=== PATIENT | male | born 1995 | race Caucasian/White ===

== ENCOUNTER 2019-05-18 08:38 | Emergency (ER) | payer SELFPAY ==
[2019-05-18 08:43] VITALS: BP 142/80; PULSE 82; RESP 16; TEMP 37.2; O2SAT 98
--- NOTE | 2019-05-18 09:17 | ED.GENADUL_ITS ---
Discharge Plan Disposition Patient Disposition: HOME Condition: Good Discharge Details Chief Complaint: DentalOral Clinical Impression: Abscess, dental Primary Care Provider: None,None ED Provider: Mei Huang Home Meds and New Rx's Prescriptions: New penicillin V potassium 500 mg tablet 500 mg PO QID Qty: 40 RF: 0 No Action ibuprofen 600 MG tablet 600 mg PO Q6H PRN (Reason: Pain) Qty: 20 RF: 0 Discharge Instructions Instructions: Dental Abscess (ED) Additional Instructions: Drink plenty of fluids. Ice to the cheek for swelling. Warm salt water rinses after eating or drinking. Use antibiotic as prescribed. Continue Aleve with food in your stomach prior to dosing twice daily. You may use Tylenol for breakthrough pain. Follow-up with your dentist. Return for any worsening, concerns or alarming symptoms sooner if needed. Medical Decision Making 24-year-old presents with right lower dental pain. Patient on exam has obvious swelling at the gumline, obviously tender. Consistent with dental abscess. Mild facial swelling consistent with dental abscess. No overlying cellulitis. No trismus. Patient has normal range of motion of the jaw. No other indication of infection. Cervical lymphadenopathy is present. Counseled patient regarding appropriate care and treatment. Antibiotics were provided. Encourage follow-up with dentist. The patient was stable and requested discharge. Prior to discharge, my usual and customary return precautions were reviewed with the patient - this included follow-up instructions and reasons to return to the Emergency Department if conditions worsens, does not improve as expected, or other new concerns arise. HPI General Date/Time Provider Initiated Documentation: 05/18/19 09:15 . HPI Narrative: 24-year-old patient presents for complaints of dental pain. Patient reports dental pain for the last 2 days. Sleeping in his recliner due to pain. History of significant dental caries. Patient reports a hard lump along the side of his jaw which she is concerned with infection. Denies fever, chills, nausea, vomiting. No trismus or voice change. Denies any other ill feeling. No other concerns or complaints. Related Data Home Medications Medication Instructions Recorded Confirmed ibuprofen 600 mg PO Q6H PRN #20 tab 03/31/17 05/18/19 penicillin V potassium 500 mg PO QID #40 tab 05/18/19 Previous Rx's Medication Instructions Recorded ibuprofen 600 mg PO Q6H PRN #20 tab 03/31/17 penicillin V potassium 500 mg PO QID #40 tab 05/18/19 Allergies Allergy/AdvReac Type Severity Reaction Status Date / Time No Known Allergies Allergy Unverified 05/18/19 08:45 General Stated Complaint: DentalOral FAN: 3 Review of Systems All systems reviewed & are unremarkable except as noted in HPI and below Constitutional Constitutional: Denies chills, Denies fever(s) and Denies headache(s) ENT Ears, Nose, Mouth, and Throat: Reports dental pain, Denies otalgia, Reports facial pain, Denies headache(s), Denies nasal congestion, Denies nasal discharge, Denies sinus pain, Denies sinus pressure and Denies sore throat Respiratory Respiratory: Denies cough Neurologic Neurologic: Denies headache(s) [facility] Social History Smoking/Tobacco Use Status: Current every day Tobacco Type: cigarettes Alcohol Intake: current Alcohol Intake frequency: holidays/special occasions only Drug use: Daily Substance use type: marijuana Do you feel safe at home: Yes Do you feel safe in your relationship?: Yes Exam Narrative Exam Narrative: CONST: Healthy appearing patient, in no acute distress. Well hydrated. Alert and alert. HENMT: Head nomocephalic, normal to inspection. Atraumatic. Hearing grossly normal. TMs appear normal bilaterally. No ear effusion or bulging. Mild pharyngeal erythema. Moderate dental tenderness at the right lower jaw. Gum swelling present near to lower posterior molar caries. Mild erythema of the gums in addition. Obvious tenderness with palpation but no obvious fluctuation. At the jawline there is palpable swelling at the overlying tissue consistent with abscess. EYES: General normal appearance. Alignment normal. Eyelids normal. Conjunctiva normal. NECK: Normal visual inspection. FROM. Trachea midline. No Midline tenderness. Cervical lymphadenopathy present SKIN: Normal. Dry. No rashes. NEURO: Alert and awake. Speech clear. PSYCH: Normal affect. Cooperative. Course Vital Signs Vital signs: Vital Signs Temperature 37.2 C 05/18/19 08:43 Pulse 82 05/18/19 08:43 Respiratory Rate 16 05/18/19 08:43 Blood Pressure 142/80 H 05/18/19 08:43 Pulse Oximetry 98 05/18/19 08:43 Temperature 37.2 C 05/18/19 08:43 Temperature Source Temporal Artery Scan 05/18/19 08:43 Pulse 82 05/18/19 08:43 Respiratory Rate 16 05/18/19 08:43 Respiratory Effort Non-Labored 05/18/19 08:44 Blood Pressure 142/80 H 05/18/19 08:43 Blood Pressure Position Sitting 05/18/19 08:43 Pulse Oximetry 98 05/18/19 08:43 Oxygen Delivery Method Room Air 05/18/19 08:43 Oxygen Flow Rate 0 05/18/19 08:43 Pain Level 3 05/18/19 08:58
== END 2019-05-18 09:21 | disposition home or self-care (01) ==
PROVIDERS: Emergency Provider Physician Assistant
DX: K04.7 Periapical abscess without sinus (principal); F17.210 Nicotine dependence, cigarettes, uncomplicated
CPT/HCPCS: 99283

== ENCOUNTER 2022-08-09 07:53 | Emergency (ER) | payer MEDICAID, SELFPAY ==
[2022-08-09 07:58] VITALS: BP 121/81; PULSE 66; RESP 14; TEMP 36.6; O2SAT 98
--- NOTE | 2022-08-09 08:11 | ED.GENADUL_ITS ---
Discharge Plan Disposition Patient Disposition: Home Discharge Details Clinical Impression: Dental infection Primary Care Provider: None,None ED Provider: Omar Goode Home Meds and New Rx's Prescriptions: New amoxicillin 875 mg tablet 875 mg PO BID Qty: 20 0RF Continued ibuprofen 600 MG tablet 600 mg PO Q6H PRN (Reason: Pain) Qty: 20 0RF Discharge Instructions Instructions: Dental Abscess (ED) Additional Instructions: Amoxicillin as directed. [id number]-[id number] medications such as Tylenol, Motrin, Orajel, etc. as directed for symptomatic control. Salt water swish and spit as tolerated. Cool and/or warm compresses every 2 hours for 20 minutes. Please watch for new or worsening symptoms and return to the ER for any concerns. Lastly, I have provided you with the local dental list, I recommend contacting the dentist on that list to see who can see you as an outpatient the soonest as you will need to see a dentist for more definitive care. Medical Decision Making 27-year-old gentleman, current smoker, poor dentition in general he does not have a dentist presents for left lower dental infection that began yesterday. He is requesting antibiotics until he is able to be seen by a dentist. Took Motrin with moderate relief. No evidence of trismus or airway compromise. Clinically he appears well, nontoxic, afebrile. Plan to initiate antibiotic th erapy and provide him with the local dental list. Standard discharge and return precautions were provided. Patient understands, is agreeable to this plan, and has no additional questions or concerns upon discharge. This documentation was generated using [employer] dictation system, please disregard any oddities of phrase or misspellings. Medical Records Medical records reviewed: Yes I reviewed the patient's medical records. HPI General Mode of arrival: ambulatory . Date/Time Provider Initiated Documentation: 08/09/22 08:09 . Limitations to Documentation: no limitations . Information obtained by: patient . History of Present Illness 27 year old M presents to the emergency department with the chief complaint of dental infection, described as moderate, with intensity rated at 4. Quality is described as aching, and is localized to the mouth. Patient reports no radiation. Patient started experiencing this day(s) (1) and it has been constant. No relieving factors improve symptom(s), No exacerbating factors reported . Patient notes no other symptoms.. Patient did receive the following treatments prior to arrival, NSAID Related Data Home Medications Medication Instructions Recorded Confirmed ibuprofen 600 mg tablet 600 mg PO Q6H PRN Pain #20 tabs 03/31/17 08/09/22 amoxicillin 875 mg tablet 875 mg PO BID #20 tabs 08/09/22 Previous Rx's Medication Instructions Recorded ibuprofen 600 mg tablet 600 mg PO Q6H PRN Pain #20 tabs 03/31/17 amoxicillin 875 mg tablet 875 mg PO BID #20 tabs 08/09/22 Allergies Allergy/AdvReac Type Severity Reaction Status Date / Time No Known Allergies Allergy Unverified 08/09/22 08:02 General Stated Complaint: DentalOral FAN: 4 Review of Systems Constitutional Constitutional: Denies fever(s) ENT Ears, Nose, Mouth, and Throat: Denies otalgia and Denies sore throat Integumentary/Breasts Skin/Breast: Denies erythema PFSH All Active Problems (Updated 08/09/22 @ 08:36 by PEDRO Courtney) Dental infection (Acute) Social History Smoking/Tobacco Use Status: Current every day Tobacco Type: cigarettes Smoking risk assessment performed?: Yes Alcohol Intake: current Alcohol Intake frequency: holidays/special occasions only Drug use: Daily Substance use type: marijuana Do you feel safe at home: Yes Do you feel safe in your relationship?: Yes Exam Const General: cooperative, healthy appearing, comfortable and no acute distress Orientation: alert, awake and oriented x3 HENMT Head: normal to inspection, normocephalic and atraumatic Ears: external ears normal, TM's normal bilaterally and EAC's normal Face images: 1. Mild swelling and tenderness. There is no fluctuance, erythema, warmth, pointing abscess. Skin is intact. Mouth: moist mucous membranes Teeth and gingiva: poor dentition Throat: posterior oropharynx normal Eyes General: appearance normal, both eyes and all related structures Conjunctivae: conjunctivae normal Neck Neck: normal visual inspection, full ROM, no lymphadenopathy, no meningeal signs, trachea midline, supple and nontender Resp Effort & Inspection: normal respiratory effort and able to speak in complete sentences Skin General skin exam: no rashes or lesions noted Neuro General: patient alert, patient awake, moves all extremities and no focal motor deficits Cognition: normal cognition Speech: speech normal Sensory Exam: no sensory deficits noted Psych Appearance: grossly normal Mental Status: mental status grossly normal Course Vital Signs Vital signs: Vital Signs Temperature 36.6 C 08/09/22 07:58 Pulse 66 08/09/22 07:58 Respiratory Rate 14 08/09/22 07:58 Blood Pressure 121/81 08/09/22 07:58 Pulse Oximetry 98 08/09/22 07:58 Temperature 36.6 C 08/09/22 07:58 Temperature Source Tympanic 08/09/22 07:58 Pulse 66 08/09/22 07:58 Respiratory Rate 14 08/09/22 07:58 Respiratory Effort Normal 08/09/22 08:01 Blood Pressure 121/81 08/09/22 07:58 Blood Pressure Position Sitting 08/09/22 07:58 Pulse Oximetry 98 08/09/22 07:58 Oxygen Delivery Method Room Air 08/09/22 07:58 Oxygen Flow Rate 0 08/09/22 07:58 Pain Level 5 08/09/22 08:01 PAWSS Have you Been Recently Intoxicated or Drunk Within the Last 30 days?: No Have you Ever Experienced Previous Episodes of Alcohol Withdrawal?: No Have you ever Experienced Withdrawal Seizures?: No Have you ever Experienced Delirium Tremens(DT)s?: No Have you ever undergone Alcohol Rehabilitation Treatment (i.e, inpt ot outpatient treatment programs)?: No Have you ever Experienced Blackouts?: No Have you ever Combined Alcohol with other Downers within the last 90 days?: No Have you ever Combined Alcohol with any other Substance of Abuse during the last 90 days?: No Result: 0
[2022-08-09 09:05] VITALS: BP 119/82; PULSE 66; RESP 15; TEMP 36.8; O2SAT 97
== END 2022-08-09 09:10 | disposition home or self-care (01) ==
PROVIDERS: Emergency Provider Physician Assistant
DX: K04.7 Periapical abscess without sinus (principal)
CPT/HCPCS: 99283; 99284

== ENCOUNTER 2023-12-31 06:57 | Emergency (ER) | payer SELFPAY ==
[2023-12-31 07:00] VITALS: BP 135/99; PULSE 82; RESP 13; TEMP 36.9; O2SAT 99
--- NOTE | 2023-12-31 07:00 | DI.RAD_ITS ---
Exam(s) XR WRIST RT COMPL NAVICULAR EXAM: XR WRIST RT COMPL NAVICULAR CLINICAL HISTORY: FOOSH, pain radial and scaphoid. TECHNIQUE: 2D digital imaging was performed. Three views. COMPARISON: No exams were available for comparison FINDINGS: BONES: Nondisplaced fracture noted at the distal navicular. The fracture line extends to the articul ar surface with the trapezium. No additional fractures are identified. No bony destructive lesion i s seen. JOINTS: The carpal bones are normally aligned. SOFT TISSUE: Normal. IMPRESSION: Nondisplaced fracture of the distal pole of the navicular. DATA REPOSITORY: RADIATION DOSE DELIVERED:
--- NOTE | 2023-12-31 07:30 | ED.GENADUL_ITS ---
Discharge Plan Disposition Patient Disposition: Home Condition: Stable Discharge Details Clinical Impression: Closed fracture of scaphoid of right wrist Primary Care Provider: Unknown,Unknown ED Provider: Wilver Jones Home Meds and New Rx's Prescriptions: Continued ibuprofen 600 MG tablet 600 mg PO Q6H PRN (Reason: Pain) Qty: 20 0RF Discharge Instructions Instructions: Forearm and Wrist Fractures ED, How to care for a splint Additional Instructions: Please keep splint dry and intact. Please follow-up with orthopedics. Calll today to schedule followup. Return to the ER for any worsening or new concerning symptoms. Referrals: [facility] [Provider Group] Discharge Data Discharge Date/Time-TO BE ENTERED AT DEPARTURE: 12/31/23 12:18 HPI General Mode of arrival: ambulatory . Date/Time Provider Initiated Documentation: 12/31/23 07:04 . Limitations to Documentation: no limitations . Information obtained by: patient . HPI Narrative: 28-year-old male here after FOOSH injury last night while skateboarding here with chief complaint of pain in his right wrist. Pain is localized to lateral wrist. No associated numbness or tingling. Pain feels like prior wrist fracture of his other wrist. No other injury sustained. Related Data Home Medications ?Medication ?Instructions ?Recorded ?Confirmed ibuprofen 600 mg tablet 600 mg PO Q6H PRN Pain #20 tabs 03/31/17 12/31/23 Previous Rx's ?Medication ?Instructions ?Recorded ibuprofen 600 mg tablet 600 mg PO Q6H PRN Pain #20 tabs 03/31/17 Allergies Allergy/AdvReac Type Severity Reaction Status Date / Time No Known Allergies Allergy Unverified 12/31/23 07:04 General Stated Complaint: Orthopedic FAN: 4 Review of Systems Musculoskeletal Musculoskeletal: Reports as per HPI Exam Const General: cooperative and no acute distress Cardio Rate: regular rate and not tachycardic Rhythm: regular rhythm Neuro General: patient alert, patient awake and tone normal Extrem Right upper extremity: elbow/forearm Details: normal to inspection, wrist Details: tenderness Location: of the distal radius and of the anatomic snuffbox and abnormal ROM Details: pain with active ROM during Details: with extension, w ith flexion and with ADduction and hand Details: normal to inspection Course Vital Signs Vital signs: Vital Signs Temperature 36.9 C 12/31/23 07:00 Pulse 82 12/31/23 07:00 Respiratory Rate 13 12/31/23 07:00 Blood Pressure 135/99 H 12/31/23 07:00 Pulse Oximetry 99 12/31/23 07:00 Temperature 36.9 C 12/31/23 07:00 Temperature Source Oral 12/31/23 07:00 Pulse 82 12/31/23 07:00 Respiratory Rate 13 12/31/23 07:00 Blood Pressure 135/99 H 12/31/23 07:00 Blood Pressure Position Sitting 12/31/23 07:00 Pulse Oximetry 99 12/31/23 07:00 Oxygen Delivery Method Room Air 12/31/23 07:00 Oxygen Flow Rate 0 12/31/23 07:00 Pain Level 7 12/31/23 07:00 Procedures Orthopedic Splinting/Casting Injury #1: Side: right Upper Extremity Injury Location: wrist Upper Extremity Immobilizer: wrist splint and thumb spica Medical Decision Making 28-year-old male FOOSH last night with pain in his right wrist. Patient has tenderness in the snuffbox raising concern for acute scaphoid fracture. X-ray of the right wrist with scaphoid view interpreted by radiology: Scaphoid fracture. Acetaminophen was administered for pain I communicated with Dr. Weathers who recommends thumb spica and will see the patient in follow-up. Plaster thumb spica splint was applied by me without complication. Patient neurovascular intact post splint application. Dr. Weathers recommended CT scan which has been obtained. CT of the wrist was interpreted by radiology:Normal nondisplaced fracture of the distal pole of the navicular.. Usual and customary discharge instructions were reviewed with the patient. He understands importance of timely follow-up with orthopedics. Quality:SDOH Health Related Social Needs: No Data to Display PFSH All Active Problems Closed fracture of scaphoid of right wrist (Acute) Social History Smoking/Tobacco Use Status: Current every day Tobacco Type: cigarettes Smoking risk assessment performed?: Yes Alcohol Intake: current Alcohol Intake frequency: holidays/special occasions only Drug use: Daily Substance use type: marijuana Do you feel safe at home: Yes Do you feel safe in your relationship?: Yes
[2023-12-31] MEDS: Acetaminophen 325 MG TAB 650 MG PO (07:36)
--- NOTE | 2023-12-31 07:54 | DI.VRAD_ITS ---
PROCEDURE INFORMATION: Exam: XR Right Wrist Exam date and time: 12/31/2023 7:15 AM Age: 28 years old Clinical indication: Wrist; Right; Patient HX: Foosh, pain radial and scaphoid TECHNIQUE: Imaging protocol: Radiologic exam of the right wrist. Views: 3 or more views. COMPARISON: No relevant prior studies available. FINDINGS: Bones/joints: Intra-articular distal scaphoid fracture. Soft tissues: Soft tissue swelling. IMPRESSION: Scaphoid fracture. Dictated and Authenticated by: Anna Harry MD. Ordering:JAELYN Pettit MD
--- NOTE | 2023-12-31 11:45 | DI.CT_ITS ---
Exam(s) CT UPPER EXTREMITY RT WO EXAM: CT UPPER EXTREMITY RT WO CLINICAL HISTORY: scaphoid fracture, pain, focus on wrist TECHNIQUE: Imaging Protocol: Axial computed tomography images with coronal and sagittal reformatted images were created and reviewed. CONTRAST MATERIAL: Noncontrast COMPARISON: CR,XR XR WRIST RT COMPL NAVICULAR from 12/31/2023 FINDINGS: Bones: There is a nondisplaced fracture at the distal pole of the scaphoid laterally. There is invol vement of the articular surface with the trapezium and no significant separation Bony alignment is satisfactory. No cellulitic or osteomyelitic changes are identified. There is no evidence of joint space narrowing or cystic degeneration seen. No lytic or sclerotic lesions are identified. Bone island in distal radius. Soft Tissues: Normal. IMPRESSION: Normal nondisplaced fracture of the distal pole of the navicular.. RADIATION DOSE DELIVERED: 159.04mGy.cm Total DLP DATA REPOSITORY: All CT scans at this facility are submitted to the National Radiology Data Registry (NRDR) Dose Index Registry (DIR) with the [employer] (A[employer]). RADIATION OPTIMIZATION: All CT scans at this facility use at least one of these dose optimization te chniques: automated exposure control; mA and/or kV adjustment per patient size (includes targeted exa ms where dose is matched to clinical indication); or iterative reconstruction.
--- NOTE | 2024-01-04 08:05 | NUR.NOTE ---
Nursing Note:PT chart accessed to verify orthopedics follow up was faciliated.
== END 2023-12-31 12:18 | disposition home or self-care (01) ==
PROVIDERS: Emergency Provider Student in an Organized Health Care Education/Training Program
DX: S62.014A Nondisplaced fracture of distal pole of navicular [scaphoid] bone of right wrist, initial encounter for closed fracture (principal); F17.210 Nicotine dependence, cigarettes, uncomplicated; W18.39XA Other fall on same level, initial encounter; Y93.51 Activity, roller skating (inline) and skateboarding
CPT/HCPCS: 29125; 99284; 73110; 73200

== ENCOUNTER 2024-01-11 10:13 | Outpatient (CLI) | payer SELFPAY ==
--- NOTE | 2024-01-11 10:41 | DI.RAD_ITS ---
Exam(s) XR WRIST RT COMPL NAVICULAR EXAM: XR WRIST RT COMPL NAVICULAR CLINICAL HISTORY: f/u R SCAPHOID FX. TECHNIQUE: 2D digital imaging was performed. Three views. COMPARISON: CR,XR XR WRIST RT COMPL NAVICULAR from 12/31/[address] UPPER EXTREMITY RT WO from 12/31/2023 FINDINGS: BONES: There has been no change in the fracture at the distal pole of the navicular which remains non displaced. JOINTS: The carpal bones are normally aligned. SOFT TISSUE: Somewhat obscured by splint. IMPRESSION: Stable appearance of navicular fracture. DATA REPOSITORY: RADIATION DOSE DELIVERED:
== END 2024-01-11 10:14 | disposition home or self-care (01) ==
LOC: DIORS 10:13
PROVIDERS: Visit Provider Physician Assistant
DX: S62.001A Unspecified fracture of navicular [scaphoid] bone of right wrist, initial encounter for closed fracture (principal)
CPT/HCPCS: 73110

== ENCOUNTER 2024-07-03 16:48 | Outpatient (CLI) | payer OTHER, SELFPAY ==
--- NOTE | 2024-07-03 14:30 | DI.RAD_ITS ---
Exam(s) XR SHOULDER LT COMPLETE 2+V EXAM: XR SHOULDER LT COMPLETE 2+V CLINICAL HISTORY: Lt shoulder pain, evaluate pathology, [id number]. TECHNIQUE: 2D digital imaging was performed. COMPARISON: No exams were available for comparison FINDINGS: 3 views No evidence of fracture or dislocation or significant soft tissue calcifications. Subacromial space unremarkable. There are no degenerative changes in the glenohumeral and AC joints. Coracoid process appears unremarkable. Bone density normal. No osseous lesions. IMPRESSION: No significant radiograph findings on these views of the left shoulder. DATA REPOSITORY: RADIATION DOSE DELIVERED:
== END 2024-07-03 17:08 ==
PROVIDERS: Visit Provider Nurse Practitioner Family
DX: M25.512 Pain in left shoulder (principal)
CPT/HCPCS: 73030

== ENCOUNTER 2024-10-11 08:34 | Emergency (ER) | payer SELFPAY ==
[2024-10-11 08:40] VITALS: BP 125/83; PULSE 90; RESP 16; TEMP 36.6; O2SAT 96
[2024-10-11 08:43] VITALS: BP 125/83; PULSE 90; RESP 16; TEMP 36.6; O2SAT 96
--- NOTE | 2024-10-11 08:48 | ED.GENADUL_ITS ---
Discharge Plan Disposition Patient Disposition: Home Condition: Stable Discharge Details Clinical Impression: Abscess, dental Primary Care Provider: None,None ED Provider: Poly Lang Home Meds and New Rx's Prescriptions: New amoxicillin-pot clavulanate 875-125 mg tablet 1 tab PO BID 10 Days Qty: 20 0RF No Action acetaminophen 500 mg capsule 1,000 mg PO Q6H PRN ibuprofen 600 MG tablet 600 mg PO Q6H PRN (Reason: Pain) Qty: 20 0RF Discharge Instructions Instructions: Tooth Abscess ED Additional Instructions: Please rinse your mouth with warm salt water up to 3 times daily. Use the HurriCaine gel as needed for pain up to 3 times daily as needed. Take the antibiotic with yogurt or a probiotic as directed. You do still need to see a dentist. Please take Tylenol or Ibuprofen with food every 4-6 hours as needed for pain and swelling. Follow up with primary care provider in 3-5 days. Return to ED sooner if any worsening or concerns. Referrals: Primary Care Provider [Outside] - 1 week Discharge Data Discharge Date/Time-TO BE ENTERED AT DEPARTURE: 10/11/24 09:46 HPI General Mode of arrival: ambulatory . Date/Time Provider Initiated Documentation: 10/11/24 08:44 . Limitations to Documentation: no limitations . Information obtained by: patient, RN notes reviewed and old records reviewed . HPI Narrative: 29 year old male presents to the ED with left lower molar tooth pain and swelling x 3 days. Patient does have a dental eddie noted to number 18 with adjacent swelling. Speaking if full sentences, denies any fever or chills, did not take any medications this am. Related Data Home Medications ?Medication ?Instructions ?Recorded ?Confirmed ibuprofen 600 mg tablet 600 mg PO Q6H PRN Pain #20 tabs 03/31/17 10/11/24 acetaminophen 500 mg capsule 1,000 mg PO Q6H PRN 10/11/24 10/11/24 amoxicillin 875 mg-potassium 1 tab PO BID 10 days #20 tabs 10/11/24 clavulanate 125 mg tablet Previous Rx's ?Medication ?Instructions ?Recorded ibuprofen 600 mg tablet 600 mg PO Q6H PRN Pain #20 tabs 03/31/17 amoxicillin 875 mg-potassium 1 tab PO BID 10 days #20 tabs 10/11/24 clavulanate 125 mg tablet Allergies Allergy/AdvReac Type Severity Reaction Status Date / Time No Known Allergies Allergy Unverified 10/11/24 08:45 General Stated Complaint: DentalOral FAN: 4 Exam HENMT Mouth: lip normal, tongue normal, salivary ducts normal and oropharynx normal Teeth and gingiva: caries, gingiva abnormal edematous and tender and poor dentition Teeth image: 2 1. Swelling, tenderness Resp Effort & Inspection: normal respiratory effort and able to speak in complete sentences Auscultation: clear to auscultation bilaterally Cardio Rate: regular rate Rhythm: regular rhythm Heart Sounds: S1 normal and S2 normal Course Vital Signs Vital signs: Vital Signs Temperature 36.6 C 10/11/24 08:40 Pulse 90 10/11/24 08:40 Respiratory Rate 16 10/11/24 08:40 Blood Pressure 125/83 10/11/24 08:40 Pulse Oximetry 96 10/11/24 08:40 Temperature 36.6 C 10/11/24 08:43 Temperature Source Oral 10/11/24 08:43 Pulse 90 10/11/24 08:43 Respiratory Rate 16 10/11/24 08:43 Blood Pressure 125/83 10/11/24 08:43 Pulse Oximetry 96 10/11/24 08:43 Oxygen Delivery Method Room Air 10/11/24 08:43 Oxygen Flow Rate 0 10/11/24 08:43 Pain Level 4 10/11/24 08:43 Procedure Abscess Drainage Date of Procedure: 10/11/24 Time of Procedure: 09:20 Provider that performed the procedure: Poly Blackmon Time Out Performed: Yes Patient Consented: Verbally Complications: Other (Left lower dental abscess) Procedure Description Note: Anesthetic with 1% lidocaine with epinephrine infiltrated. Small puncture wound with 11 blade scalpel, small amount of bloody discharge. No complications patient tolerated well. Medical Decision Making 29 year old male presents to the ED with left lower molar tooth pain and swelling x 3 days. Patient does have a dental eddie noted to number 18 with adjacent swelling. Speaking if full sentences, denies any fever or chills, did not take any medications this am. 1% lidocaine injected just adjacent to the area of abscess, a incision made with a 11 blade, small amount of sanguinous return noted. Patient placed on Augmentin x 10 days and instructed to follow up with a dentist. Patient verbalized understanding. This chart was dictated using Nuance dictation system, please disregard any typos or oddities of phrase. Quality:SDOH Health Related Social Needs: 2 No Data to Display PFSH All Active Problems (Updated 10/11/24 @ 09:22 by Poly Lang NP) Abscess, dental (Acute) Social History Smoking/Tobacco Use Status: Current every day Tobacco Type: cigarettes and e- cigarettes Smoking risk assessment performed?: Yes Alcohol Intake: current Alcohol Intake frequency: holidays/special occasions only Drug use: Daily Substance use type: marijuana Do you feel safe at home: Yes Do you feel safe in your relationship?: Yes POCUS Exam (ED) Limited Soft Tissue Exam PROVIDER THAT PERFORMED THE STUDY: Poly Lang
[2024-10-11] MEDS: Amoxicillin 875/Clav. 125 TAB PO (09:01)
[2024-10-11] MEDS: Ibuprofen 800 MG TAB PO (09:02)
[2024-10-11] MEDS: Benzocaine 20% Gel 30 GM JAR MM (09:03)
[2024-10-11] MEDS: Lidocaine 1% Pres-Free W/EPI 1/200,000 30 ML VIAL IJ (09:44)
== END 2024-10-11 09:46 | disposition home or self-care (01) ==
PROVIDERS: Emergency Provider Registered Nurse Emergency
DX: K08.89 Other specified disorders of teeth and supporting structures (principal); K04.7 Periapical abscess without sinus
CPT/HCPCS: 10160; 99283; J2004

== ENCOUNTER 2025-03-02 07:35 | Emergency (ER) | payer SELFPAY ==
[2025-03-02] VITALS (12 sets, daily range): BP systolic 130–141; BP diastolic 74–79; PULSE 54–82; RESP 15–38; TEMP 36.6–36.8; O2SAT 99–100
--- NOTE | 2025-03-02 07:30 | RT.EKG_ITS ---
APPROVED REPORT Exam: Resting ECG Reason for Exam: chest pain Patient Location: E HR:67 bpm ECG Measurements Heart Rate 67 AXIS MI 178 P 28 QRSd 99 QRS 82 QT 353 T 72 QTc 375 Conclusion Sinus rhythm...normal P axis, V-rate 60- 99 No Occlusion [place]
--- NOTE | 2025-03-02 08:00 | DI.RAD_ITS ---
Exam(s) XR CHEST 2V PA LATERAL EXAM: XR CHEST 2V PA LATERAL CLINICAL HISTORY: Chest pain. TECHNIQUE: 2D digital imaging was performed. COMPARISON: No exams were available for comparison FINDINGS: 2 views: Heart size is normal. The mediastinum is not widened. Lungs are clear. No infiltrates nor pleural effusions. Mild pectus excavatum noted IMPRESSION: No acute pulmonary findings. DATA REPOSITORY: RADIATION DOSE DELIVERED:
--- NOTE | 2025-03-02 08:03 | W.ED.GENAD ---
Discharge Plan Disposition Patient Disposition: Home Discharge Details Clinical Impression: Chest pain, unspecified Primary Care Provider: None,None ED Provider: Naun Bashir Home Meds and New Rx's Prescriptions: Continued acetaminophen 500 mg capsule 1,000 mg PO Q6H PRN ibuprofen 600 MG tablet 600 mg PO Q6H PRN (Reason: Pain) Qty: 20 0RF Discharge Instructions Additional Instructions: You were seen in the emergency department for your chest pain. Your blood work showed no sign of any damage your heart. As we discussed, a referral has been placed for you to have a primary care provider. Please return to the emergency department if you pass out develop worsening chest pain or have any other concerns. For your pain please take medications as follows: 1. Take acetaminophen (Tylenol), 1,000 mg (two 500 mg tabs) every 6 hours [2. Take ibuprofen (Advil), 400 mg every 6 hours.] Stand Alone Forms: Work Release Discharge Data Discharge Date/Time-TO BE ENTERED AT DEPARTURE: 03/02/25 09:55 HPI General Date/Time Provider Initiated Documentation: 03/02/25 08:02. HPI Narrative: MDM This is a quite well-appearing normothermic and not tachycardic 30-year-old male with pleuritic left-sided chest pain for which he will undergo troponin testing. I considered PE however patient is PERC negative so I did not send a D-dimer. No pain out of proportion to suggest necrotizing soft tissue infection. Patient denies recent nausea and vomiting and so I am not concerned for esophageal rupture. No rash to chest to suggest zoster. No tearing quality to suggest aortic dissection. No fevers nor cough to suggest pericarditis and there is no positional component. Patient is not hypotensive nor a dialysis patient so my suspicion is low for tamponade. Bilateral lung sliding so doubt pneumothorax in the absence of trauma. Will treat pain with ketorolac and reassess. Patient lacks risk factors for ACS so anticipate that if he has reassuring troponins to be appropriate for discharge. 9:30 AM Initial reassuring troponin. Basic metabolic panel showing normal renal function. No NARCISA. Mild hypoglycemia. No acute electrolyte abnormalities. 9:40 AM Reassuring repeat troponin. Chest x-ray with no acute cardiopulmonary process. 10:45 AM Patient feels improved in the emergency department. His mildly elevated blood pressure improved without intervention. His repeat troponin was reassuring. Will provide him with a work note. We discussed that he should return to work tomorrow. We discussed that he should return to the ED if he developed any shortness of breath worsening chest pain chest pain that radiated to his arms or if you have any other concerns. Otherwise patient was discharged with an empiric trial of expectant outpatient management. HEART SCORE Chest pain Diagnostic Protocol: [-History/Physical/Gestalt: Slightly Suspicious (0)] [-EKG: Normal and/or unchanged from prior EKG (0)] [-AGE: less than 45 (0)] [-RISK FACTORS: No known risk factors (0)] [- TROPONIN: >=3 x normal limit (+2)] [- TROPONIN: >1 - < 3 x normal limit (+1)] [-TROPONIN: <= normal limit (0)] - TOTAL SCORE: 0 - Risk Factors: DM, current or recent smoker, HTN, HLD, family hx of CAD, obesity - INTERPRETATION: With a total score of 3 or less, risk of major cardiac event within six weeks 1.7%, likely lower with two negative troponins. [I explained to the patient that the risk of subsequent major cardiac event within 1 month is not 0, however risk predicted to be less than 2%. Patient verbalized understanding, accepts this risk and shared and the decision for discharge with PCP follow-up for further evaluation and management. They understand to return to the ED immediately with any worsening symptoms, new symptoms or other concerns.] Diagnostic interpretations performed by me: Per my independent interpretation chest x-ray shows: No acute cardiopulmonary process. Per my independent interpretation EKG shows: Narrow complex normal sinus rhythm at a rate of 67. Normal axis. Intervals within normal limits. No ST segment abnormalities. No acute injury pattern. No prior for comparison. HPI This is a male with no significant past medical history presenting with chest pain. The patient began experiencing chest pain and shortness of breath on the morning of 02/28/2025, which persisted for approximately 4 to 5 hours before subsiding. He was symptom-free on 03/01/2025 and the morning of 03/02/2025 until the discomfort returned as he prepared for work. The pain is described as a sensation of restriction in his chest, accompanied by sharp pain when attempting to take a deep breath. This is his first encounter with such chest pain, which is localized around his heart and lung area and does not radiate elsewhere. He reports no recent falls or injuries at work. He also reports no rashes on his chest or episodes of vomiting. He has no known history of diabetes, high blood pressure, or high cholesterol. He has not been ill recently with symptoms such as a cold, cough, or runny nose. Exam General: Well-appearing slender tall patient in no acute distress speaking in complete sentences. Head: Normocephalic, atraumatic. Eye: Extraocular eye movements intact. No conjunctival injection. No scleral icterus. Ear, nose, mouth, throat: Grossly normal inspection. Normal voice, handling secretions normally. Neck: Trachea midline. Cardiovascular: Well-perfused distal extremities. Regular rate and rhythm. No murmurs. Respiratory: Nonlabored respiration. Clear lungs bilaterally. Gastrointestinal: Nondistended abdomen. Soft nontender. Musculoskeletal: No lower extremity pitting edema. Moving all 4 extremities spontaneously. No calf tenderness bilaterally. Skin: Normal for age and race, grossly normal temperature and turgor. No acute rash. Neurologic: Alert and appropriate, no apparent acute deficits. Psychiatric: Mood and manner are appropriate. Grooming and personal hygiene are appropriate. Related Data Home Medications ?Medication ?Instructions ?Recorded ?Confirmed ibuprofen 600 mg tablet 600 mg PO Q6H PRN Pain #20 tabs 03/31/17 03/02/25 acetaminophen 500 mg capsule 1,000 mg PO Q6H PRN 10/11/24 03/02/25 Previous Rx's ?Medication ?Instructions ?Recorded ibuprofen 600 mg tablet 600 mg PO Q6H PRN Pain #20 tabs 03/31/17 Allergies Allergy/AdvReac Type Severity Reaction Status Date / Time No Known Allergies Allergy Verified 03/02/25 07:46 General Stated Complaint: Chest Pain FAN: 3 Course Vital Signs Vital signs: Vital Signs Temperature 36.8 C 03/02/25 07:37 Pulse 66 03/02/25 07:37 Respiratory Rate 25 H 03/02/25 07:37 Blood Pressure 141/79 H 03/02/25 07:37 Pulse Oximetry 100 03/02/25 07:37 Temperature 36.8 C 03/02/25 07:37 Temperature Source Oral 03/02/25 07:37 Pulse 66 03/02/25 07:37 Respiratory Rate 38 H 03/02/25 07:41 Respiratory Effort Normal, Non-Labored, Short of Breath 03/02/25 07:41 Respiratory Depth Normal 03/02/25 07:41 Respiratory Pattern Normal 03/02/25 07:41 Blood Pressure 141/79 H 03/02/25 07:37 Blood Pressure Position Sitting 03/02/25 07:37 Pulse Oximetry 100 03/02/25 07:37 Oxygen Delivery Method Room Air 03/02/25 07:37 Oxygen Flow Rate 0 03/02/25 07:37 PFSH All Active Problems (Updated 03/02/25 @ 09:39 by Naun Bashir MD) Chest pain, unspecified (Acute) Social History Smoking/Tobacco Use Status: Current every day Tobacco Type: cigarettes and e-cigarettes Smoking risk assessment performed?: Yes Alcohol Intake: current Alcohol Intake frequency: holidays/special occasions only Drug use: Daily Substance use type: marijuana Do you feel safe at home: Yes Do you feel safe in your relationship?: Yes POCUS Exam (ED) Limited Cardiac Exam DATE OF EXAM: 03/02/25 TIME OF EXAM: 08:16 PROVIDER THAT PERFORMED THE STUDY: Naun Basihr IS THIS A REPEAT EXAM DURING THIS ENCOUNTER: no REASON FOR EXAM: Chest pain VISUALIZED STRUCTURES: Four Chambers, Left ventricle and LVOT VIEW OBTAINED: Apical 4-Chamber, Parasternal long-axis and Subxiphoid PERTINENT FINDINGS/IMPRESSION: No pericardial effusion and No RV dilation DIFFERENTIAL DIAGNOSES: Aortic outflow track less than 4 cm, good squeeze, RV less than LV, no significant pericardial effusion. Bilateral lung sliding. Exam complete
[2025-03-02] MEDS: Ketorolac 15 MG/ML VIAL IVP (08:23)
[2025-03-02 08:57] LABS: Anion Gap 5.5 mmol/L (3-11); BUN 12 mg/dL (7-18); CO2 32.5 mmol/L (21.0-32.0); Calcium 9.3 mg/dL (8.5-10.1); Chloride 103 mmol/L (98-107); Estimated GFR 91.47 (mL/min/1.73m2); Glucose 69 mg/dL (74-106); Potassium 3.6 mmol/L (3.5-5.1); Sodium 141 mmol/L (136-145); Troponin I 7 ng/L (<or=76)
[2025-03-02 09:35] LABS: Troponin I 7 ng/L (<or=76)
[2025-03-02 09:37] LABS: Abs Immature Grans 0.01 10^3/uL (0.0-0.06); HCT 41.1 % (40.0-50.0); HGB 13.8 g/dL (13.5-17.5); Immature Grans % 0.2 %; MCH 28.5 pg (27.0-33.0); MCHC 33.6 % (32.0-36.0); MCV 85 fL (80-95); MPV 11.4 fL (8.0-11.0); Platelet Count 208 10^3/uL (130-400); RBC 4.84 10^6/uL (4.36-5.78); RDW 12.3 % (11.8-14.1); RDW-SD 37.9 fL; WBC 5.85 10^3/uL (4.4-10.8)
== END 2025-03-02 09:55 | disposition home or self-care (01) ==
PROVIDERS: Emergency Provider Emergency Medicine
DX: R07.9 Chest pain, unspecified (principal); R06.02 Shortness of breath
CPT/HCPCS: 99285; 99284; 36415; 96372; 80048; 93005; 93308; 71046; 84484; 85025; 93010; J1885

== ENCOUNTER 2025-03-09 06:28 | Emergency (ER) | payer SELFPAY ==
[2025-03-09] VITALS (15 sets, daily range): BP systolic 113–140; BP diastolic 70–82; PULSE 53–74; RESP 18–49; TEMP 36.6–36.8; O2SAT 98–100
--- NOTE | 2025-03-09 06:30 | RT.EKG_ITS ---
APPROVED REPORT Exam: Resting ECG Reason for Exam: Chest pain Patient Location: E HR:68 bpm ECG Measurements Heart Rate 68 AXIS AL 188 P 3 QRSd 96 QRS 61 QT 354 T 51 QTc 376 Conclusion Sinus rhythm...normal P axis, V-rate 60- 99 I have reviewed and interpreted ECG and agree with software generated interpretation.
--- NOTE | 2025-03-09 06:56 | ED.GENADUL_ITS ---
Discharge Plan Discharge Details Chief Complaint: Chest Pain Clinical Impression: Chest pain, unspecified Primary Care Provider: None,None ED Provider: Jyothi Mahan Home Meds and New Rx's Prescriptions: No Action acetaminophen 500 mg capsule 1,000 mg PO Q6H PRN ibuprofen 600 MG tablet 600 mg PO Q6H PRN (Reason: Pain) Qty: 20 0RF HPI General Mode of arrival: ambulatory . Date/Time Provider Initiated Documentation: 03/09/25 06:42 . Limitations to Documentation: no limitations . Information obtained by: patient and old records reviewed . HPI Narrative: 30yo previously healthy male presenting with left sided chest pain. Pain started on 02/28 and has been intermittent, seen in this ED on 03/02 with reassuring workup at at that time including EKG, labs, CXR. Pain improved after toradol and he was discharged home to PCP followup. Has been worsening since then and now his breathing feels much worse. Pain is sharp, left sided, constricting, and only present with inspiration or palpation. Hurts when he lays on his chest on that side. No pain if he holds his breath. No trauma or injury to the area. Otherwise in his usual state of health with no fevers, chills, rash, nause, vomiting, back pain, numbness, weakness, or other concerns. Related Data Home Medications ?Medication ?Instructions ?Recorded ?Confirmed ibuprofen 600 mg tablet 600 mg PO Q6H PRN Pain #20 t abs 03/31/17 03/09/25 acetaminophen 500 mg capsule 1,000 mg PO Q6H PRN 10/1103/09/25 Previous Rx's ?Medication ?Instructions ?Recorded ibuprofen 600 mg tablet 600 mg PO Q6H PRN Pain #20 t abs 03/31/17 Allergies Allergy/AdvReac Type Severity Reaction Status Date / Time No Known Allergies Allergy Verified 03/09/25 06:42 General Stated Complaint: Chest Pain FAN: 3 Review of Systems Narrative: see HPI Exam Narrative Exam Narrative: General: Alert, tachypneic Head: Normocephalic, atraumatic Neck: Trachea midline, ?Neck supple. ENT: ?MMM.? No oropharygeal lesions or exudate. Cardiac: ?RRR, no murmurs appreciated. Equal radial pulses. Resp: Tachypneic. Good air movement, slightly diminished on right, questionable faint expiratory wheeze Chest: Anterior left chest wall markedly TTP. No rash. Abd: ?Soft, non-distended, nontender : ?No suprapubic tenderness. Extremities: ?No deformities.? No peripheral edema. Neurologic: GCS 15. ? Moves all extremities freely against gravity Course Vital Signs Vital signs: Vital Signs Temperature 36.6 C 03/09/25 06:32 Pulse 69 03/09/25 06:32 Respiratory Rate 32 H 03/09/25 06:32 Blood Pressure 123/72 03/09/25 06:32 Pulse Oximetry 100 03/09/25 06:32 Temperature 36.6 C 03/09/25 06:32 Temperature Source Tympanic 03/09/25 06:32 Pulse 69 03/09/25 06:32 Respiratory Rate 32 H 03/09/25 06:43 Respiratory Effort Normal, Non-Labored 03/09/25 06:43 Respiratory Depth Normal 03/09/25 06:43 Respiratory Pattern Normal 03/09/25 06:43 Blood Pressure 123/72 03/09/25 06:32 Blood Pressure Position Sitting 03/09/25 06:32 Pulse Oximetry 100 03/09/25 06:32 Oxygen Delivery Method Room Air 03/09/25 06:32 Oxygen Flow Rate 0 03/09/25 06:32 Pain Level 7 03/09/25 06:43 Medical Decision Making 30yo previously healthy male presenting with intermittent pleuritic left sided chest pain. Started on 02/28, seen in this ED on 03/02 with reassuring workup and improved after toradol, now feeling worse. Tachypneic on arrival, appears anxious, good air movement with questionable faint expiratory wheeze. Vital signs otherwise reassuring. Marked left anterior chest wall tenderness. EKG on SR, appropriate intervals, no ST segment or T wave abnormalities to suggest occlusive ID. Lower suspicion for ACS based on history but out of abundance of caution will give 325 ASA, tylenol for pain, low dose ativan for shortness of breath/?anxiety, try albuterol inhaler (though he is only very faintly wheezing if at all). No suggestion of shingles. Will evaluate broadly with labs including d-dimer for PE, inflammatory markers for pericarditis (unlikely), get repeat CXR (?pneumothorax, effusion, rib fx). Signed out to oncoming physician, plan to followup labs, CXR, reassess. Disposition pending results and clinical course. PFSH All Active Problems (Updated 03/09/25 @ 07:54 by Jyothi Mahan MD) Chest pain, unspecified (Acute) Social History Smoking/Tobacco Use Status: Current every day Tobacco Type: cigarettes and e- cigarettes Smoking risk assessment performed?: Yes Alcohol Intake: current Alcohol Intake frequency: holidays/special occasions only Drug use: Daily Substance use type: marijuana Do you feel safe at home: Yes Do you feel safe in your relationship?: Yes
[2025-03-09 07:20] LABS: BE (Venous) 4 mmol/L (-2-3); HCO3 (Venous) 28 mmol/L (23-28); O2 Sat (Venous) 84 %; TCO2 (Venous) 25 mmol/L (24-29); pCO2 (Venous) 42 mmHg (41-51); pO2 (Venous) 44 mmHg
[2025-03-09] MEDS: ACETAMINOPHEN 1,000 MG/100 ML BAG 400 MG IVPB (07:21)
[2025-03-09 07:22] LABS: Abs Immature Grans 0.02 10^3/uL (0.0-0.06); HCT 39.1 % (40.0-50.0); HGB 12.8 g/dL (13.5-17.5); Immature Grans % 0.3 %; MCH 27.8 pg (27.0-33.0); MCHC 32.7 % (32.0-36.0); MCV 85 fL (80-95); MPV 10.6 fL (8.0-11.0); Platelet Count 193 10^3/uL (130-400); RBC 4.61 10^6/uL (4.36-5.78); RDW 12.5 % (11.8-14.1); RDW-SD 38.3 fL; WBC 7.08 10^3/uL (4.4-10.8)
[2025-03-09 07:23] LABS: ESR 1 mm/hr (0-15)
[2025-03-09] MEDS: Aspirin 81 MG CHEW 324 MG CH (07:23)
[2025-03-09] MEDS: Albuterol HFA 8 GM 60 PUFF INH IH ×2 (07:23→10:14)
[2025-03-09] MEDS: LORazepam 0.5 MG TAB PO (07:24)
[2025-03-09 07:37] LABS: INR 1.0 (0.9-1.1); PTT Activated 23.7 sec (20.6-30.2); Prothrombin Time 9.7 sec (9.1-11.1)
[2025-03-09 07:40] LABS: C-Reactive Protein < 0.50 mg/dL (<or=0.5)
[2025-03-09 07:48] LABS: ALT 18 U/L (16-63); AST 17 U/L (15-37); Albumin 3.9 g/dL (3.4-5.0); Alkaline Phosphatase 79 U/L (46-116); Anion Gap 8.6 mmol/L (3-11); BUN 13 mg/dL (7-18); Bilirubin, Total 0.6 mg/dL (0.2-1.0); CO2 28.4 mmol/L (21.0-32.0); Calcium 9.1 mg/dL (8.5-10.1); Chloride 104 mmol/L (98-107); Estimated GFR 116.37 (mL/min/1.73m2); Glucose 109 mg/dL (74-106); Lipase 34 U/L (<78); Magnesium 1.9 mg/dL (1.8-2.4); NT-proBNP 71 pg/mL (<300); Potassium 3.8 mmol/L (3.5-5.1); Sodium 141 mmol/L (136-145); Total Protein 6.7 g/dL (6.4-8.2); Troponin I 4 ng/L (<or=76)
--- NOTE | 2025-03-09 07:55 | DI.RAD_ITS ---
Exam(s) XR CHEST 2V PA LATERAL EXAM: XR CHEST 2V PA LATERAL CLINICAL HISTORY: Chest pain TECHNIQUE: 2D digital imaging was performed of the chest. Two images were obtained. PA and lateral views were obtained. COMPARISON: CR XR CHEST 2V PA LATERAL from 03/02/2025 FINDINGS: MEDIASTINUM: Normal. HEART: Normal. PULMONARY VASCULATURE: Normal. LUNGS: There are no focal consolidating infiltrates. PLEURAL SPACE: There is blunting of the left posterior costophrenic angle suggesting a small pleural effusion. BONE:Within normal limits for the patient's age. There is a mild pectus excavatum deformity. OTHER FINDINGS:Normal. IMPRESSION: 1. Small left pleural effusion. Otherwise, unremarkable examination. 2. The preliminary [facility] report was reviewed. DATA REPOSITORY: RADIATION DOSE DELIVERED:
[2025-03-09 07:59] LABS: D-Dimer 814 ng/mlFEU (<500)
--- NOTE | 2025-03-09 08:30 | DI.CT_ITS ---
Exam(s) CT CHEST PE CTA EXAM: CT CHEST PE CTA CLINICAL HISTORY: elevated dimer, eval for PE. TECHNIQUE: Imaging Protocol: Axial CT angiography was performed with multi- slice acquisition and multi-planar and/or 3D reconstructions. Lung Computer Aided Detection (CAD) was utilized. CONTRAST MATERIAL: Intravenous: Omnipaque 350 contrast volume:100 mL COMPARISON: CT CHEST WITH CONTRAST from 08/08/2016 CR XR CHEST 2V PA LATERAL from 03/09/2025 FINDINGS: Tracheobronchial tree: Patent where visualized. No bronchiectasis. Pulmonary parenchyma: There are no suspicious pulmonary nodules. There is a small left pleural effusion and subjacent atelectasis. Pulmonary Arteries: No evidence of filling defect to suggest pulmonary emboli. Mediastinum and Mavis: No dominant adenopathy or fluid collection. The esophagus is unremarkable. Visualized thyroid gland: Unremarkable. Pleura: There is no right pleural effusion. No pneumothorax is present. Heart: The heart is not dilated. No coronary artery calcifications are seen. No pericardial effusion. Aorta: Thoracic aorta non-dilated. Due to the timing of the bolus for optimization of the pulmonary artery opacification, there is suboptimal opacification of the thoracic aorta. No obvious dissection is seen. Upper abdomen: Unremarkable. Soft tissues: Mild bilateral gynecomastia. Bones: Within normal limits for the patient's age. IMPRESSION: 1. No evidence of pulmonary embolism, thoracic aortic dissection or aneurysm. 2. There is a small left pleural effusion and adjacent atelectasis. RADIATION DOSE DELIVERED: 117.94mGy.cm Total DLP DATA REPOSITORY: All CT scans at this facility are submitted to the National Radiology Data Registry (NRDR) Dose Index Registry (DIR) with the [employer] ([employer]). RADIATION OPTIMIZATION: All CT scans at this facility use at least one of these dose optimization techniques: automated exposure control; mA and/or kV adjustment per patient size (includes targeted exams where dose is matched to clinical indication); or iterative reconstruction.
[2025-03-09] MEDS: Normal Saline Flush 10 ML SYR IVP (08:44)
[2025-03-09] MEDS: Normal Saline - Diluent 50 ML VIAL IJ (08:45)
[2025-03-09] MEDS: Omnipaque 350 MG/ML 100 ML BTL IJ (08:45)
--- NOTE | 2025-03-09 09:05 | DI.[facility]_ITS ---
PROCEDURE INFORMATION: Exam: XR Chest Exam date and time: 03/09/2025 7:44 AM Age: 30 years old Clinical indication: Chest pressure; Chest pain. TECHNIQUE: Imaging protocol: Radiologic exam of the chest. Views: 2 views. COMPARISON: CR XR CHEST 2V PA LATERAL 03/02/2025 9:02 AM FINDINGS: Lungs: No consolidation. Pleural spaces: No sizable pleural effusion or pneumothorax. Heart/Mediastinum: No cardiomegaly. Bones/joints: Unremarkable. IMPRESSION: No acute intrathoracic findings. Dictated and Authenticated by: Bety Wang MD. Orderin Negrito Roe MD
[2025-03-09 09:23] LABS: Troponin I 5 ng/L (<or=76)
--- NOTE | 2025-03-09 09:45 | ED.PROG_ITS ---
Date of service: 03/09/25 Time of Service: 09:45 Medical Decision Making Patient was signed out to me by my colleague Dr. Pacheco. Please refer to her HPI, physical exam, assessment and plan. At time of signout we are awaiting CT scan results and lab results. Laboratory workup has returned unremarkable, D-di clair was elevated and CT angio was ordered. CT scan showed no evidence of PE or dissection. There is evidence of a small left pleural effusion and adjacent atelectasis. Patient did have a mild wheeze which improved. He does not have an inhaler at home. Suspect this may be a component. Suspect potential pneumonia versus aspirate. Will give Augmentin for treatment as well as an albuterol inhaler for home. Otherwise no evidence of significant cardiac etiology, dissection PE or other life-threatening etiology. The remainder of the patient's laboratory workup is normal. proBNP normal suggesting no signs of heart strain, lipase normal. Patient will be discharged home. Discussed these findings with the patient. I have extensively reviewed the treatment plan and discharge instructions with the patient. I have addressed all patient concerns at this time. The patient was made aware of what symptoms to monitor for that would warrant a return to the emergency department. Discussed the plan with the patient, they demonstrate verbal understanding and agreement with our assessment and plan at this time. The documentation in this chart was dictated using [employer] dictation software. Please excuse any dictation errors. FINDINGS: Tracheobronchial tree: Patent where visualized. No bronchiectasis. Pulmonary parenchyma: There are no suspicious pulmonary nodules. There is a small left pleural effusion and subjacent atelectasis. Pulmonary Arteries: No evidence of filling defect to suggest pulmonary emboli. Mediastinum and Mavis: No dominant adenopathy or fluid collection. The esophagus is unremarkable. Visualized thyroid gland: Unremarkable. Pleura: There is no right pleural effusion. No pneumothorax is present. Heart: The heart is not dilated. No coronary artery calcifications are seen. No pericardial effusion. Aorta: Thoracic aorta non-dilated. Due to the timing of the bolus for optimization of the pulmonary artery opacification, there is suboptimal opacif ication of the thoracic aorta. No obvious dissection is seen. Upper abdomen: Unremarkable. Soft tissues: Mild bilateral gynecomastia. Bones: Within normal limits for the patient's age. IMPRESSION: 1. No evidence of pulmonary embolism, thoracic aortic dissection or aneurysm. 2. There is a small left pleural effusion and adjacent atelectasis. Discharge Plan Disposition Patient Disposition: Home Condition: Good Discharge Details Clinical Impression: Chest pain, unspecified, Atelectasis Primary Care Provider: None,None ED Provider: Adolfo Segura Home Meds and New Rx's Prescriptions: New amoxicillin-pot clavulanate 875-125 mg tablet 1 tab PO BID 7 Days Qty: 14 0RF No Action acetaminophen 500 mg capsule 1,000 mg PO Q6H PRN ibuprofen 600 MG tablet 600 mg PO Q6H PRN (Reason: Pain) Qty: 20 0RF Discharge Instructions Instructions: Atelectasis Additional Instructions: At this time your workup has returned very reassuring. There is no evidence of heart attack, rib fracture, pulmonary embolism or other significant abnormality. You do have a small bout of fluid in your left lung where your pain and achiness is, as well as a questionable early infection. Please take the antibiotic as directed. A prescription has been sent to your pharmacy. Please take 2 puffs of your inhaler every 6-8 hours as needed. If you notice any worsening of your symptoms, or any new symptoms such as vomiting, diarrhea, fever, chills, shortness of breath, chest pain, numbness, weakness, or fainting , please return immediately to the emergency department for reevaluation. Please follow up with your primary care provider as soon as possible for reassessment and reevaluation. As always, it was a pleasure participating in your medical care today.
[2025-03-09] MEDS: Amox. 875/Clav. 125, 2 TABS/BTL 1 TAB PO (10:14)
== END 2025-03-09 10:14 | disposition home or self-care (01) ==
PROVIDERS: Student in an Organized Health Care Education/Training Program; Emergency Provider Student in an Organized Health Care Education/Training Program
DX: R07.9 Chest pain, unspecified (principal); J90 Pleural effusion, not elsewhere classified; R79.1 Abnormal coagulation profile
CPT/HCPCS: 00123; 71275; 80053; 82805; 83690; 85652; 93005; 96365; 99285; 71046; 83735; 83880; 84484; 85025; 85379; 85610; 85730; 86140; 93010; J0131; J3490